=== PATIENT | female | born 1970 | race Hispanic/Latino ===

== ENCOUNTER 2019-11-24 21:54 | Emergency (ER) | payer OTHER ==
[~2019-11-24] VITALS: Ht 152.4 cm; Wt 55.3 kg
--- OUTSIDE RECORDS SUMMARY | 2019-11-24 21:58 | XMS ---
PreManage Notification: GEOVANY HOUSTON Security Plumber Apprentice Events No recent Security Events currently on file CRITERIA MET - [facility] [place] - 2 Visits in 30 Days CARE PROVIDERS JORGE HERNANDEZ Physician Recovery Engineer Current PHONE: [phone] Terrance has no Care Guidelines for this patient. EHeidi VISIT COUNT (12 MO.) [address] TOTAL 2 NOTE: Visits indicate total known visits. ED/UCC VISIT TRACKING (12 MO.) 11/24/2019 21:55 [facility] [place] TYPE: Emergency COMPLAINT: - WEAKNESS/CHEST PRESSURE 11/24/2019 10:52 [facility] [place] TYPE: Emergency DIAGNOSES: - weakness - Exhaustion due to excessive exertion, initial encounter - Other specified bacterial intestinal infections INPATIENT VISIT TRACKING (12 MO.) No inpatient visits to display in this time frame [email or web address]
--- NOTE | 2019-11-25 21:38 | EKG ---
[facility] [address] [facility] [place], [place] [address] Signed Normal sinus rhythm Normal ECG No previous ECGs available Confirmed by RASHAD GOMEZ DO ([id number]) on 11/25/2019 9:37:45 PM Electronically Signed By: RASHAD GOMEZ DO 11/25/19 2138 PATIENT NAME: JAQUEZGEOVANY DAVIS Electrocardiogram DATE OF : 72 PHYSICIAN: RASHAD GOMEZ DO REPORT #: [id number] REPORT IS CONFIDENTIAL AND NOT TO BE RELEASED WITHOUT AUTHORIZATION
== END 2019-11-24 22:30 | disposition left against medical advice (07) ==
LOC: ED 21:54
DX: Z53.21 Procedure and treatment not carried out due to patient leaving prior to being seen by health care provider (principal)
CPT/HCPCS: 93005; 93010